=== PATIENT | male | born 1970 | race Caucasian/White ===

== ENCOUNTER 2022-09-12 11:36 | Day surgery (SDC) | payer OTHER ==
[~2022-09-12] VITALS: Ht 180.3 cm; Wt 95.5 kg
[2022-09-12 11:50] VITALS: BP 154/106
[2022-09-12] MEDS ORDERED: NO HOME MEDS (12:33)
[2022-09-12] MEDS ORDERED: MIDAZolam 1 MG/ML 5ML VIAL ONE (13:05)
[2022-09-12] MEDS ORDERED: fentaNYL/PF 50MCG/1 ML 2ML syringe ONE (13:05)
[2022-09-12] MEDS ORDERED: LIDOcaine Viscous 15ml cup ONE (13:06)
[2022-09-12 13:38] VITALS: BP 154/106
[2022-09-12 13:48] VITALS: BP 116/87
[2022-09-12 13:58] VITALS: BP 117/90
[2022-09-12 14:08] VITALS: BP 119/86
== END 2022-09-12 14:15 | disposition home or self-care (01) ==
LOC: GI LAB 11:36
PROVIDERS: ATTEND Internal Medicine Gastroenterology
DX: K22.89 Other specified disease of esophagus (principal); K31.A11 Gastric intestinal metaplasia without dysplasia, involving the antrum; K29.60 Other gastritis without bleeding; Z72.89 Other problems related to lifestyle; Z88.5 Allergy status to narcotic agent
CPT/HCPCS: 43239; 99152; J2250; J3010; J7030; Z7512; A4620